=== PATIENT | female | born 1990 | race Two or more races ===

== ENCOUNTER 2022-08-19 07:46 | Outpatient (REF) | payer OTHER, SELFPAY | END 2022-08-19 07:47 | disposition home or self-care (01) | LOC: HO.HOSX 07:46 | PROVIDERS: Visit Provider Physician Assistant | DX: Z13.89 Encounter for screening for other disorder (principal) ==

== ENCOUNTER 2024-02-20 10:22 | Outpatient (AMB) | payer OTHER, SELFPAY ==
--- NOTE | 2024-02-20 10:23 | A.OFFPC_ITS ---
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 Allergies No Known Allergies Allergy (Verified 02/20/24 10:26) Medication List - Last Reconciled 02/20/24 by Selma Kemp MD No Known Home Meds Tobacco use date assessed: 02/20/24 Dental Screening Dental Screen Date: 02/20/24 Did you have a dental visit in the last 12 months?: Yes Did you have a dental problem in the last 6 months where you did not have access to dental care?: No Was dental information given to patient?: Patient has dentist HPI CRANE SERVICE TECHNICIAN Re est care- PE request HPI Details Pt presents for CRANE SERVICE TECHNICIAN PE. Pt c/o depression and anxiety for many years. Patient used to see a counselor and tried different antidepressant but could not tolerate because of side effects. She denies suicide ideation or history of hospitalization. She has not established with a Psychiatry. [facility] Surgical History (Updated 03/09/20 @ 12:13 by Delisa Messina) No pertinent past surgical history Family History (Updated 02/20/24 @ 10:28 by Libby Salinas [facility]) Father No problems noted. Mother Family history of thyroid problem Social History (Updated 02/20/24 @ 10:40 by Selma Kemp MD) Household Members Other:: lives with 2 kids (18 and 12), used to work as MA, Housing: House Patient Tobacco Use Status: Never used Tobacco e-Cigarette/Vaping Use: Never Used service: No Current occupational status: unemployed Cognitive needs: No Hearing needs: No Vision needs: No Questionnaire PHQ-9 Over the last 2 weeks, how often have you been bothered by any of the following problems? 1. Little interest or pleasure in doing things: more than half the days 2. Feeling down, depressed, or hopeless: nearly every day 3. Trouble falling or staying asleep, or sleeping too much: nearly every day 4. Feeling tired or having little energy: nearly every day 5. Poor appetite or overeating: more than half the days 6. Feeling bad about yourself - or that you are a failure or have let yourself or your family down: nearly every day 7. Trouble concentrating on things, such as reading the newspaper or watching television: more than half the days 8. Moving or speaking so slowly that other people could have noticed. Or the opposite - being so fidgety or restless that you have been moving around a lot more than usual: more than half the days 9. Thoughts that you would be better off or of hurting yourself in some way: not at all Total score: 20 Depression Screening Interpretation: Positive (Referral to counseling, patient is not interested in taking medications) Depression Screening Follow-up: Existing condition and Declines treatment Depression Screening Done: Yes 19631 - PHQ-9 Billing: Yes Source: Developed by Drs. Kei Abdullahi, Elaina Multani, Bruno Youssef and colleagues, with an educational ernestina from [employer]. Thrive Questionnaire Date Thrive assessed: 02/20/24 I am a: Patient What is your living situation today?: I have a steady place to live Within the past 12 months, did the food you bought not last and you didn't have the money to get more?: Sometimes True Within the past 12 months, did you worry whether your food would run out before you got money to buy more?: Sometimes True Do you have trouble paying for medicines?: No Do you have trouble getting transportation to medical appointments?: No Do you have trouble paying your heating and electricity bill?: Yes Do you have trouble taking care of your child, family member or friend?: No Do you have trouble with day-to-day activities such as bathing, preparing meals, shopping, managing finances, etc.?: No Are you currently unemployed and looking for a job?: Yes Are you interested in more education?: Yes Please select the resources that you would like help with: Job search/training Currently or been in a relationship where the following occur: No concerns repor brett THRIVE Score: 3 AUDIT C Alcohol Use Questionnaire (AUDIT-C) 1. How often do you have a drink containing alcohol?: 2-3 times a week 2. How many drinks containing alcohol do you have on a typical day when you are drinking?: 1 or 2 3. How often do you have six or more drinks on one occasion?: Less than monthly Total Score: 4 KECIA-7 AMB Questionnaire KECIA-7 Date KECIA - 7 assessed: 02/20/24 Feeling nervous, anxious, or on edge: 3 = Nearly every day Not being able to stop or control worryin = Nearly every day Worrying too much about different things: 3 = Nearly every day Trouble relaxin = Nearly every day Being so restless that it is hard to sit still: 2 = More than half the days Becoming easily annoyed or irritable: 2 = More than half the days Feeling afraid as if something awful might happen: 2 = More than half the days Total KECIA-7 score (0-4 normal; 5-9 mild; 10-14 moderate; 15-21 severe): 18 Source: Developed by Drs. Kei Abdullahi, Elaina Multani, Bruno Youssef and colleagues, with an educational ernestina from [employer]. KECIA-7 Assessment Billing KECIA-7 Assessment Tool: KECIA-7 Assessment 15550 Review of Systems Const All systems reviewed & are unremarkable except as noted in HPI and below ENT Reports no additional complaints Card Reports no additional complaints Resp Reports no additional complaints GI Reports no additional complaints Reports no additional complaints Musc Reports no additional complaints Physical exam (Primary Care) Vital Signs: Last Vital Signs Pulse 89 02/20/24 10:25 BP 110/70 02/20/24 10:25 Pulse Ox 98 02/20/24 10:25 Oxygen Delivery Method Room Air 02/20/24 10:25 BMI result Body Mass Index 26.3 Tobacco/Smoking Status: Tobacco use Status Tobacco use date assessed 02/20/24 02/20/24 10:30 Patient Tobacco Use Status Never used Tobacco 02/20/24 10:30 e-Cigarette/Vaping Use Never Used 02/20/24 10:30 PHQ-9: PHQ-9 Score PHQ-9: Total score 20 02/20/24 10:30 Depression Screening Interpretation: Positive (Referral to counseling, patient is not interested in taking medications) Depression Screening Follow-up: Existing condition and Declines treatment Thrive Assessment: Date of Thrive Assessment Date Thrive assessed 02/20/24 02/20/24 10:30 Currently or been in a relationship where the following occur: No concerns reported Const General: no acute distress HENMT Face and sinus: Yes normal facial exam Mouth: Normal oral and palatal mucosa present Neck Neck: Yes no lymphadenopathy and Yes supple Resp Effort & Inspection: normal respiratory effort Auscultation: clear to auscultation bilaterally Cardio Rhythm: regular rhythm Heart sounds: S1 normal heart sound present and S2 normal heart sound present GI Inspection: Yes normal to inspection Palpation (GI): Soft to palpation Percussion: Yes normal to percussion Auscultation: normal bowel sounds Coding Level of Care Code New Pt Prev Care 18-39yr(65639 Diagnoses Depression with anxiety F41.8 Normal pelvic exam Z01.419 Annual physical exam Z00.00 Additional Codes KECIA-7 Assessment Billing - KECIA-7 Assessment Tool: KECIA-7 Assessment 89864 ([id number]) Assessment & Plan Assessment & Plan (1) Depression with anxiety: Comment: Patient will be referred to counseling she declined medications Code(s): F41.8 - Other specified anxiety disorders Category: Medical Plan: Referred to counseling (2) Normal pelvic exam: 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 - Encounter for general adult medical examination without abnormal findings Category: Medical Plan: Well-balanced diet regular physical activity discussed with the patient she will have a fasting blood work today Orders: Orders Complete Blood Count Auto Diff Today Z00.00 - Encounter for general adult medical examination without abnormal findings Lipid Panel Today Z00.00 - Encounter for general adult medical examination without abnormal findings Comprehensive [place]. Panel Fast Today Z00.00 - Encounter for general adult medical examination without abnormal findings TSH reflex Free T4 Today Z00.00 - Encounter for general adult medical examination without abnormal findings UA w Microscopic Today Z00.00 - Encounter for general adult medical examination without abnormal findings
[2024-02-20 10:25] VITALS: BP 110/70; PULSE 89; O2SAT 98; BMI 26.3
== END 2024-02-20 11:56 | disposition home or self-care (01) ==
LOC: HO.HMCC 10:23
PROVIDERS: PCP Internal Medicine; Visit Provider Internal Medicine
DX: F41.8 Other specified anxiety disorders (principal); Z01.419 Encounter for gynecological examination (general) (routine) without abnormal findings; Z00.00 Encounter for general adult medical examination without abnormal findings

== ENCOUNTER 2024-02-20 10:22 | Outpatient (REF) | payer OTHER, SELFPAY ==
[2024-02-20 13:30] LABS: MANUAL DIFF FLAG NO
[2024-02-20 13:31] LABS: Appearance Urine Clear; Color Urine Yellow; Glucose Urine UA Negative (Negative); Leukocyte Esterase Urine Negative (Negative); Nitrite Urine Negative (Negative); PH 8.5 (5.0-9.0); Urine Blood Negative (Negative); Urine Ketones Negative (Negative); Urine Protein Negative (Neg-Trace)
[2024-02-20 13:44] LABS: Basophils Absolute Auto 0.1 X10*3/uL (0.0-0.2); Basophils Percent Auto 0.9 % (0-2); Eosinophils Absolute Auto 0.3 X10*3/uL (0.0-0.4); Eosinophils Percent Auto 3.6 % (0-4); Hemoglobin 12.7 g/dl (12.0-16.0); Imm Gran Abs Auto 0.02 X10*3/uL (0.00-0.03); Imm Gran Pct Auto 0.3 % (0.0-0.4); Lymphocytes Absolute Auto 2.2 X10*3/uL (1.2-4.9); Lymphocytes Percent Auto 32.6 % (20-40); Mean Corpuscular HGB Conc 32.6 g/dl (31.0-35.0); Mean Corpuscular Hemoglobin 27.9 pg (27.0-33.0); Mean Corpuscular Volume 85.7 fL (80.0-98.0); Mean Platelet Volume 11.7 fL (9.4-12.3); Monocytes Absolute Auto 0.8 X10*3/uL (0.1-1.2); Monocytes Percent Auto 10.9 % (2-11); Neutrophils Absolute Auto 3.6 x10*3/uL (2.0-8.3); Neutrophils Percent Auto 51.7 % (45-73); Platelet Count 306 X10*3/uL (160-400); Red Blood Count 4.55 X10*6/uL (4.20-5.50); Red Cell Distribution Width 13.5 % (11.0-16.0); White Blood Count 6.9 X10*3/uL (4.8-10.8)
[2024-02-20 13:47] LABS: Bacteria Urine 1+ (None Seen); Hyaline Casts Urine 0-2 /LPF (0-2); RBC Urine 0-2 /HPF (0-2); WBC Urine 0-5 /HPF (0-5)
[2024-02-20 14:20] LABS: Alanine Aminotransferase 19 U/L (0-31); Albumin Level 4.5 g/dL (3.5-5.0); Alkaline Phosphatase 81 U/L (39-117); Anion Gap 10 (12-20); Aspartate Amino Transferase 25 U/L (5-31); Bilirubin Total 0.4 mg/dL (0.0-1.0); Blood Urea Nitrogen 11 mg/dL (9-16); Calcium 9.7 mg/dL (8.4-10.2); Carbon Dioxide 25 mmol/L (22-29); Chloride 105 mmol/L (96-108); Cholesterol 148 mg/dL (<200); Estimated Glomerular Filt Rate > 60; Glucose Fasting 87 mg/dL (60-99); HDL Cholesterol 52 mg/dL (>40); LDL Cholesterol Calculated 86 mg/dL (<100); Potassium 4.1 mmol/L (3.3-5.1); Sodium 136 mmol/L (135-145); Total Protein 7.8 g/dL (6.5-8.0); Triglycerides 50 mg/dL (<150)
== END 2024-02-20 10:23 | disposition home or self-care (01) ==
LOC: HO.HMGCLDS 10:22
PROVIDERS: PCP Internal Medicine; Visit Provider Internal Medicine
DX: Z00.00 Encounter for general adult medical examination without abnormal findings (principal); F41.8 Other specified anxiety disorders
CPT/HCPCS: 36415; 80053; 80061; 81001; 84443; 85025; 96127; 99385

== ENCOUNTER 2024-06-19 11:21 | Outpatient (AMB) | payer OTHER, SELFPAY ==
[2024-06-19 11:36] VITALS: BP 120/70; PULSE 87; RESP 18; TEMP 37.4; O2SAT 98; BMI 24.9
--- NOTE | 2024-06-19 11:36 | MHC.PC.OV ---
Vital Signs 06/19/24 11:36 Height 5 ft 1 in Weight 132 lb BMI 24.9 BP 120/70 Blood Pressure Location Lt brachial Position Sitting Respiration 18 Pulse 87 Pulse Source Pulse Oximeter Temp 99.3 F Temp Source Oral Pulse Oximetry (%) 98 Oxygen Delivery Method Room Air Intake Visit Reasons: fever for 2 days Intake Note: Pt is here today for a sick visit. Pt c/o fever chills body aches, cough for 2 days now. Allergies No Known Allergies Allergy (Verified 06/19/24 11:37) Tobacco use date assessed: 06/19/24 Dental Screening Dental Screen Date: 06/19/24 Did you have a dental visit in the last 12 months?: Yes Did you have a dental problem in the last 6 months where you did not have access to dental care?: No Was dental information given to patient?: Patient has dentist HPI fever for 2 days HPI Details Pt c/o fever, sore throat, body aches, cough for 2 days. PFSH Surgical History No pertinent past surgical history Family History Father No problems noted. 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 1. Little interest or pleasure in doing things: several days 2. Feeling down, depressed, or hopeless: several days 3. Trouble falling or staying asleep, or sleeping too much: several days 4. Feeling tired or having little energy: several days 5. Poor appetite or overeating: several days 6. Feeling bad about yourself - or that you are a failure or have let yourself or your family down: several days 7. Trouble concentrating on things, such as reading the newspaper or watching television: several days 8. Moving or speaking so slowly that other people could have noticed. Or the opposite - being so fidgety or restless that you have been moving around a lot more than usual: several days 9. Thoughts that you would be better off or of hurting yourself in some way: several days Total score: 9 Depression Screening Interpretation: Positive (Patient is established with a therapist) Depression Screening Follow-up: Existing condition Depression Screening Done: Yes 93343 - PHQ-9 Billing: Yes Source: Developed by Drs. Kei Abdullahi, Elaina Multani, Bruno Youssef and colleagues, with an educational ernestina from [employer]. Thrive Questionnaire Date Thrive assessed: 06/19/24 I am a: Patient What is your living situation today?: I have a steady place to live Within the past 12 months, did the food you bought not last and you didn't have the money to get more?: I choose not to answer this question Within the past 12 months, did you worry whether your food would run out before you got money to buy more?: I choose not to answer this question Do you have trouble paying for medicines?: No Do you have trouble getting transportation to medical appointments?: I choose not to answer this question Do you have trouble paying your heating and electricity bill?: I choose not to answer this question Do you have trouble taking care of your child, family member or friend?: I choose not to answer this question Do you have trouble with day-to-day activities such as bathing, preparing meals, shopping, managing finances, etc.?: No Are you currently unemployed and looking for a job?: No Are you interested in more education?: No Please select the resources that you would like help with: None Currently or been in a relationship where the following occur: No concerns reported THRIVE Score: 0 AUDIT C Alcohol Use Questionnaire (AUDIT-C) 1. How often do you have a drink containing alcohol?: 2-4 times a month 2. How many drinks containing alcohol do you have on a typical day when you are drinking?: 3 or 4 3. How often do you have six or more drinks on one occasion?: Less than monthly Total Score: 4 KECIA-7 AMB Questionnaire KECIA-7 Date KECIA - 7 assessed: 06/19/24 Feeling nervous, anxious, or on edge: 1 = Several days Not being able to stop or control worryin = Several days Worrying too much about different things: 1 = Several days Trouble relaxin = Several days Being so restless that it is hard to sit still: 1 = Several days Becoming easily annoyed or irritable: 1 = Several days Feeling afraid as if something awful might happen: 1 = Several days Total KECIA-7 score (0-4 normal; 5-9 mild; 10-14 moderate; 15-21 severe): 7 Source: Developed by Drs. Kei Abdullahi, Elaina Multani, Bruno Youssef and colleagues, with an educational ernestina from [employer]. KECIA-7 Assessment Billing KECIA-7 Assessment Tool: KECIA-7 Assessment 22200 Review of Systems Const All systems reviewed & are unremarkable except as noted in HPI and below ENT Reports no additional complaints Card Reports no additional complaints Resp Reports no additional complaints GI Reports no additional complaints Reports no additional complaints Physical exam (Primary Care) Vital Signs: Last Vital Signs Temp 99.3 F 06/19/24 11:36 Pulse 87 06/19/24 11:36 Resp 18 06/19/24 11:36 BP 120/70 06/19/24 11:36 Pulse Ox 98 06/19/24 11:36 Oxygen Delivery Method Room Air 06/19/24 11:36 BMI result Body Mass Index 24.9 Tobacco/Smoking Status: Tobacco use Status Tobacco use date assessed 06/19/24 06/19/24 11:37 Patient Tobacco Use Status Never used Tobacco 06/19/24 11:37 e-Cigarette/Vaping Use Never Used 06/19/24 11:37 PHQ-9: PHQ-9 Score PHQ-9: Total score 9 06/19/24 11:53 Depression Screening Interpretation: Positive (Patient is established with a therapist) Depression Screening Follow-up: Existing condition Thrive Assessment: Date of Thrive Assessment Date Thrive assessed 06/19/24 06/19/24 11:46 Currently or been in a relationship where the following occur: No concerns reported Const General: no acute distress HENMT Head: Yes normal to inspection Ears: TM's normal bilaterally Face and sinus: Yes normal facial exam Eyes General: appearance normal, both eyes and all related structures Neck Neck: Yes supple Resp Effort & Inspection: normal respiratory effort Auscultation: clear to auscultation bilaterally Cardio Rhythm: regular rhythm Heart sounds: S1 normal heart sound present and S2 normal heart sound present Coding Level of Care Code Est Pt Level 3 (72394) Diagnoses Viral syndrome B34.9 Additional Codes KECIA-7 Assessment Billing - KECIA-7 Assessment Tool: KECIA-7 Assessment 83802 ([id number]) PHQ-9 - 60827 - PHQ-9 Billing: Yes ([id number]) Assessment & Plan Assessment & Plan (1) Viral syndrome: Code(s): B34.9 - Viral infection, unspecified Category: Medical Plan: Supportive care discussed with the patient Orders: Orders SARS-CoV2/FLU/RSV Today J39.9 - Disease of upper respiratory tract, unspecified
--- OUTSIDE RECORDS SUMMARY | 2024-06-19 13:45 | XMS_ITS | Clinical Summary ---
Author Organization [facility] Address [address] [place] [id number] Phone Care Team Providers Care Strategic Development Manager Name Role Phone Unavailable Primary Care Provider Unavailabl e Immunizations Immunization Administration Dates Next Due DTP 06/14/1992, 0,1988,1988,1988 Hep B, ped/adol 08/15/1999,04/16/1999,03/16/1999 Hib (PRP-T) 11/07/1989 IPV 06/14/1992, 0,1988,1988,1988 MMR 06/14/1992,11/07/1989 Td (adult) (MBL), 2 Lf tetan us toxoid, PF, adsorbed 11/23/1999 Family History Relation Name Status Comments Brother Alive Brother: Seizur e disorder Father Alive Father: Alive a nd well Mother Alive Mother: Alive a nd well Sister Alive Sister: Alive a nd well Social History Tobacco Use Types Packs/Day Years Used Date Smoking Tobacco: Never Assessed Comments Unknown Sex and Gender Information Value Date Recorded Sex Assigned at Not on file Legal Sex Female 4:29 PM EDT Gender Identity Not on file Sexual Orientation Not on file Plan of Treatment Health Maintenance Due Date Last Done Comments DTaP,Tdap,and Td Vaccines (6 - Tdap) 11/24/1999 11/23/1999, 06/14/1992, 01/03/1990, Additional history exists Varicella Vaccines (1 of 2 - 13+ 2-dose series) 2001 Influenza Vaccines (#1) 2023 COVID-19 Vaccine ( - season) 2023 HIB Vaccines Completed 11/07/1989 IPV Vaccines Completed 06/14/1992, 10/16, 1988, Additional history exists MMR Vaccines Completed 06/14/1992, 11/07/1989 Hepatitis B Vaccines Completed 08/15/1999, 04/16/1999, 03/16/1999 HPV Vaccines Aged Out No longer eligi ble based on patient's age to complete this topic Hepatitis A Vaccines Aged Out No long er eligible based on patient's age to complete this topic Men B Vaccine Aged Out No longer elig ible based on patient's age to complete this topic Meningococcal Vaccine Aged Out No olivia bianca eligible based on patient's age to complete this topic Pneumococcal Vaccine Aged Out No long er eligible based on patient's age to complete this topic
--- OUTSIDE RECORDS SUMMARY | 2024-06-19 13:45 | XMS_ITS | Encounter Summary ---
Author Organization [facility] Address [address] [place] [address] Phone Care Team Providers Care Rn Cardiovascular Name Role Phone Viky Loaiza MD Primary Care Provider [phone] Encounter Details Date Type Department Care Team (Late st Contact Info) Description 12/01/2016 Conversion Encounter [facility] [place] [address] [place] [address] Social History Tobacco Use Types Packs/Day Years Used Date Smoking Tobacco: Never Assessed Comments Unknown Sex and Gender Information Value Date Recorded Sex Assigned at Not on file Legal Sex Female 4:29 PM EDT Gender Identity Not on file Sexual Orientation Not on file documented as of this encounter Plan of Treatment Not on file documented as of this encounter Visit Diagnoses Not on filedocumented in this encounter Care Teams Rn Cardiovascular Relationship Specialty Start Date End Date Viky Loaiza MD [address] [place] [address] PCP - General 11/25/16 10/10/22 documented as of this encounter
== END 2024-06-19 12:39 | disposition home or self-care (01) ==
PROVIDERS: PCP Internal Medicine; Visit Provider Internal Medicine
DX: B34.9 Viral infection, unspecified (principal)

== ENCOUNTER 2024-06-19 11:21 | Outpatient (REF) | payer OTHER, SELFPAY ==
--- OUTSIDE RECORDS SUMMARY | 2024-06-19 14:41 | XMS_ITS | Clinical Summary ---
Author Organization [facility] Address [address] [place] [phone] Phone Care Team Providers Care Rn Cardiac Rehab Name Role Phone Unavailable Primary Care Provider [...]
--- OUTSIDE RECORDS SUMMARY | 2024-06-19 14:41 | XMS_ITS | Encounter Summary ---
Author Organization [facility] Address [address] [place] [address] Phone Care Team Providers Care Forklift Wheel Loader Name Role Phone Viky Loaiza MD Primary Care Provider [phone] Encounter Details Date Type Department Care Team (Late st Contact Info) Description 12/01/2016 Conversion Encounter [facility] [place] [address] [place] [address] Social History Tobacco Use Types Packs/Day Years [...] on filedocumented in this encounter Care Teams Forklift Wheel Loader Relationship Specialty Start Date End Date Viky Loaiza MD [address] [place] [address] PCP - General 11/25/16 10/10/22 documented as of this encounter
[2024-06-19 14:43] LABS: Influenza A PCR NEGATIVE (Negative); Influenza B PCR NEGATIVE (Negative); Resp Syncy Virus RNA Qual PCR POSITIVE (Negative); SARS COV2 PCR INHOUSE NEGATIVE (Negative)
== END 2024-06-19 11:22 | disposition home or self-care (01) ==
LOC: HO.LAB 11:21
PROVIDERS: PCP Internal Medicine; Visit Provider Internal Medicine
DX: B34.9 Viral infection, unspecified (principal); J39.9 Disease of upper respiratory tract, unspecified
CPT/HCPCS: 0241U; 96127; 99212

== ENCOUNTER 2025-01-07 09:46 | Outpatient (AMB) | payer OTHER, SELFPAY ==
[2025-01-07 10:09] VITALS: BP 110/70; PULSE 96; RESP 20; TEMP 36.7; O2SAT 98; BMI 24.2
--- NOTE | 2025-01-07 10:09 | MHC.PC.OV ---
Vital Signs 01/07/25 10:09 Height 5 ft 1 in Weight 128 lb BMI 24.2 BP 110/70 Blood Pressure Location Lt brachial Position Sitting Respiration 20 Pulse 96 Pulse Source Pulse Oximeter Temp 98.0 F Temp Source Oral Pulse Oximetry (%) 98 Oxygen Delivery Method Room Air Intake Visit Reasons: anxiety Intake Note: Pt is here today for a sick visit. Pt c/o anxiety. Allergies No Known Allergies Allergy (Verified 01/07/25 10:21) Tobacco use date assessed: 01/07/25 Dental Screening Dental Screen Date: 06/19/24 HPI anxiety HPI Details Pt presents for f/u anxiety. Pt has been seeing counselor for 3 weeks. Pt has been under a lot of stress related to custody of her 13 yr and difficulty with her partner. 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 Patient tried multiple medications in the past which were not effective and she is not interested in medical treatment. [facility] Medical History (Updated 01/07/25 @ 15:53 by Selma Kemp MD) Annual physical exam Normal pelvic exam Depression with anxiety Surgical History No pertinent past surgical history Family History Father No problems noted. 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 1. Little interest or pleasure in doing things: more than half the days 2. Feeling down, depressed, or hopeless: nearly every day 3. Trouble falling or staying asleep, or sleeping too much: more than half the days 4. Feeling tired or having little energy: nearly every day 5. Poor appetite or overeating: more than half the days 6. Feeling bad about yourself - or that you are a failure or have let yourself or your family down: nearly every day 7. Trouble concentrating on things, such as reading the newspaper or watching television: several days 8. Moving or speaking so slowly that other people could have noticed. Or the opposite - being so fidgety or restless that you have been moving around a lot more than usual: several days 9. Thoughts that you would be better off or of hurting yourself in some way: not at all Total score: 17 Depression Screening Interpretation: Positive (Established with counselor not interested in treatment) Depression Screening Follow-up: Existing condition and Declines treatment Depression Screening Done: Yes 29911 - PHQ-9 Billing: Yes Source: Developed by Drs. Kei Abdullahi, Elaina Multani, Bruno Youssef and colleagues, with an educational ernestina from [employer] Thrive Questionnaire Date Thrive assessed: 06/19/24 I am a: Patient What is your living situation today?: I have a steady place to live Within the past 12 months, did the food you bought not last and you didn't have the money to get more?: I choose not to answer this question Within the past 12 months, did you worry whether your food would run out before you got money to buy more?: I choose not to answer this question Do you have trouble paying for medicines?: No Do you have trouble getting transportation to medical appointments?: I choose not to answer this question Do you have trouble paying your heating and electricity bill?: I choose not to answer this question Do you have trouble taking care of your child, family member or friend?: I choose not to answer this question Do you have trouble with day-to-day activities such as bathing, preparing meals, shopping, managing finances, etc.?: No Are you currently unemployed and looking for a job?: No Are you interested in more education?: No Please select the resources that you would like help with: None Currently or been in a relationship where the following occur: No concerns reported THRIVE Score: 0 KECIA-7 AMB Questionnaire KECIA-7 Date KECIA - 7 assessed: 06/19/24 Feeling nervous, anxious, or on edge: 3 = Nearly every day Not being able to stop or control worryin = Nearly every day Worrying too much about different things: 3 = Nearly every day Trouble relaxin = More than half the days Being so restless that it is hard to sit still: 2 = More than half the days Becoming easily annoyed or irritable: 1 = Several days Feeling afraid as if something awful might happen: 2 = More than half the days Total KECIA-7 score (0-4 normal; 5-9 mild; 10-14 moderate; 15-21 severe): 16 Source: Developed by Drs. Kei Abdullahi, Elaina Multani, Bruno Youssef and colleagues, with an educational ernestina from [employer] KECIA-7 Assessment Billing KECIA-7 Assessment Tool: KECIA-7 Assessment 87658 Review of Systems Const All systems reviewed & are unremarkable except as noted in HPI and below Eyes Reports no additional complaints ENT Reports no additional complaints Card Reports no additional complaints Resp Reports no additional complaints GI Reports no additional complaints Reports no additional complaints Physical exam (Primary Care) Vital Signs: Last Vital Signs Temp 98.0 F 01/07/25 10:09 Pulse 96 01/07/25 10:09 Resp 20 01/07/25 10:09 BP 110/70 01/07/25 10:09 Pulse Ox 98 01/07/25 10:09 Oxygen Delivery Method Room Air 01/07/25 10:09 BMI result Body Mass Index 24.2 Tobacco/Smoking Status: Tobacco use Status Tobacco use date assessed 01/07/25 01/07/25 10:22 Patient Tobacco Use Status Never used Tobacco 01/07/25 10:09 e-Cigarette/Vaping Use Never Used 01/07/25 10:09 PHQ-9: PHQ-9 Score PHQ-9: Total score 17 01/07/25 11:18 Depression Screening Interpretation: Positive (Established with counselor not interested in treatment) Depression Screening Follow-up: Existing condition and Declines treatment Thrive Assessment: Date of Thrive Assessment Date Thrive assessed 06/19/24 01/07/25 10:09 Currently or been in a relationship where the following occur: No concerns reported Const General: no acute distress HENMT Head: Yes normal to inspection Mouth: Normal oral and palatal mucosa present Eyes General: appearance normal, both eyes and all related structures Neck Neck: Yes supple Resp Effort & Inspection: normal respiratory effort Auscultation: clear to auscultation bilaterally Cardio Rhythm: regular rhythm Heart sounds: S1 normal heart sound present and S2 normal heart sound present GI Inspection: Yes normal to inspection Palpation (GI): Soft to palpation Percussion: Yes normal to percussion Auscultation: normal bowel sounds Coding Level of Care Code Est Pt Level 3 (08826) Diagnoses Depression with anxiety F41.8 Additional Codes KECIA-7 Assessment Billing - KECIA-7 Assessment Tool: KECIA-7 Assessment 90450 ([id number]) PHQ-9 - 84056 - PHQ-9 Billing: Yes ([id number]) Assessment & Plan Assessment & Plan (1) Depression with anxiety: Comment: Patient will be referred to counseling she declined medications Code(s): F41.8 - Other specified anxiety disorders Category: Medical Plan: Continue counseling and follow-up prn
--- OUTSIDE RECORDS SUMMARY | 2025-01-07 11:45 | XMS_ITS | Clinical Summary ---
Author Organization [facility] Address [address] [facility] [address] [place] [id number] Phone Care Team Providers Care Forest Economist Name Role Phone Jacquie Singh MD Primary Care Provid er Allergies No known active allergies Medications ibuprofen (ADVIL,MOTRIN) 400 MG tablet Take 1 tablet (400 mg total) by mouth every 6 (six) hours as needed for pain (specific location in comments). 30 tablet 02/23/2017 Active metoclopramide HCl (REGLAN) 10 MG tablet Take 1 tablet (10 mg total) by mouth 4 (four) times a day as needed for nausea or vomiting. 20 tablet 09/07/2021 Active Social History Tobacco Use Types Packs/Day Years Used Date Smoking Tobacco: Never Smokeless Tobacco: Never Alcohol Use Standard Drinks/Week Comments Yes 2 (1 standard drink = 0.6 oz pur e alcohol) twice a month Education Answer Date Recorded Are you interested in more education? Not on maru e 08/12/2022 Are you concerned about learning? Not on file 08/12/2022 No 08/12/2022 No 08/12/2022 Digital Access Answer Date Recorded No 09/10/2022 No 09/10/2022 No 09/10/2022 Reliable internet access at home? Not on file 09/10/2022 Device with a working camera? Not on file Comments No Sex and Gender Information Value Date Recorded Sex Assigned at Female 04/24/2017 9:38 AM EST Legal Sex Female 1:49 PM EST Gender Identity Female 04/24/2017 9:38 AM EST Sexual Orientation Straight 04/24/2017 9: 38 AM EST Last Filed Vital Signs Vital Sign Reading Time Taken Comments Blood Pressure 110/70 09/07/2021 8:12 PM EDT Pulse 84 09/07/2021 8:12 PM EDT Temperature 37 C (98.6 F) 09/07/2021 8:12 PM EDT Respiratory Rate 18 09/07/2021 8:12 PM EDT Oxygen Saturation 100% 09/07/2021 8:12 PM EDT Inhaled Oxygen Concentration - - Weight 47.6 kg (105 lb) 09/07/2021 2:37 PM EDT Height 154.9 cm (5' 1 ) 09/07/2021 2:37 PM EDT Body Mass Index 19.84 09/07/2021 2:37 PM EDT Plan of Treatment Health Maintenance Due Date Last Done Comments DEPRESSION SCREENING 2000 HEPATITIS C SCREENING 2006 PAP SMEAR 2009 SMOKING STATUS SCREENING (On ce After 26 Yrs) 2014 INFLUENZA VACCINE (#1) 2024 COVID-19 VACCINE (2 - 2024-2 6 season) 2024 02/10/2021 Adult Td,Tdap Booster 05/13/2026 05/13/2016 , 11/23/1999 HIB VACCINES Completed 11/07/1989 HIV ONE-TIME SCREENING (18-6 5 YEARS) Completed 07/25/2019 HEPATITIS A VACCINES Aged Out No long er eligible based on patient's age to complete this topic MENINGOCOCCAL VACCINES (ACWY) Aged Out No longer eligible based on patient's age to complete this topic MENINGOCOCCAL VACCINES (B) Aged Out N o longer eligible based on patient's age to complete this topic PNEUMOCOCCAL VACCINES (0-49 years) Aged Out No longer eligible b ased on patient's age to complete this topic Medical Devices Not on file Insurance [facility] [place] [address] [place] [address] ACO [facility] Care Teams Forest Economist Relationship Specialty Start Date End Date Jacquie Singh MD [address] [place] [address] PCP - General Internal Medicine 09/07/21 Additional Source Comments The information contained in this document represents components of the legal health record. It is not the complete legal health record.[facility]
--- OUTSIDE RECORDS SUMMARY | 2025-01-07 11:45 | XMS_ITS | Clinical Summary ---
Author Organization [facility] Address [address] [place] [id number] Phone Care Team Providers Care Artificial Fly Tier Name Role Phone Unavailable Primary Care Provider [...] of 2 - 13+ 2-dose series) 2001 HPV Vaccines (1 - 3-dose SCDM series) 2015 Influenza Vaccines (#1) 2024 COVID-19 Vaccine ( season) 2024 HIB Vaccines Completed 11/07/1989 IPV Vaccines Completed 06/14/1992, 10/16, 1988, Additional history exists MMR Vaccines Completed 06/14/1992, 11/07/1989 Hepatitis B Vaccines Completed 08/15/1999, 04/16/1999, 03/16/1999 Hepatitis A Vaccines Aged Out No long [...]
--- OUTSIDE RECORDS SUMMARY | 2025-01-07 11:45 | XMS_ITS | Encounter Summary ---
Author Organization [facility] Address [address] [place] [address] Phone Care Team Providers Care Well Logging Captain Mud Analysis Name Role Phone Viky Loaiza MD Primary Care Provider [phone] Encounter Details Date Type Department Care Team (Late st Contact Info) Description 12/01/2016 Conversion Encounter [facility] [address] [place] [address] Social History Tobacco Use Types Packs/Day Years [...] on filedocumented in this encounter Care Teams Well Logging Captain Mud Analysis Relationship Specialty Start Date End Date Viky Loaiza MD [address] [place] [address] PCP - General 11/25/16 10/10/22 documented as of this encounter
== END 2025-01-07 11:18 | disposition home or self-care (01) ==
LOC: HO.HMCC 09:47
PROVIDERS: PCP Internal Medicine; Visit Provider Internal Medicine
DX: F41.8 Other specified anxiety disorders (principal)

== ENCOUNTER → 2025-01-07 09:46 | Outpatient (BNVA) | payer OTHER, SELFPAY | PROVIDERS: PCP Internal Medicine; Visit Provider Internal Medicine | DX: F41.8 Other specified anxiety disorders (principal); Z63.6 Dependent relative needing care at home; Z63.5 Disruption of family by separation and divorce | CPT/HCPCS: 96127; 99212 ==